=== PATIENT | female | born 1950 | race Caucasian/White ===

== ENCOUNTER 2018-04-29 08:28 | Outpatient (CLI) | payer OTHER, SELFPAY ==
[2018-04-29 10:50] LABS: ALT 33 U/L (12-78); AST 22 U/L (15-37); Albumin 3.5 g/dL (3.4-5.0); Alkaline Phosphatase 75 U/L (46-116); BUN 15 mg/dL (7-18); Bilirubin, Total 0.4 mg/dL (0.2-1.0); CREATININE 0.63 mg/dL (0.55-1.02); Calcium 9.2 mg/dL (8.5-10.1); Chloride 105 mmol/L (98-107); Cholesterol 237 mg/dL (50-200); Glucose 91 mg/dL (70-100); HDL Cholesterol 50 mg/dL (40-60); LDL CHOLESTEROL 155 mg/dL (<100); Potassium 4.3 mmol/L (3.5-5.1); Sodium 140 mmol/L (136-145); Total Protein 7.1 g/dL (6.4-8.2); Triglyceride 152 mg/dL (30-150)
== END 2018-04-29 08:48 ==
PROVIDERS: PCP Family Medicine; Visit Provider Family Medicine
DX: I10 Essential (primary) hypertension (principal)
CPT/HCPCS: 36415; 80053; 80061; 83721

== ENCOUNTER 2018-06-23 13:00 | Outpatient (REF) | payer OTHER, SELFPAY ==
[2018-06-23 13:36] LABS: Bilirubin Negative (Negative); Blood Large (Negative); Clarity Sl Cloudy; Glucose Negative (Negative); Ketones Negative (Negative); Leukocyte Esterase Moderate (Negative); Nitrite Negative (Negative); Urobilinogen 0.2 EU/dL (Up TO 0.2)
[2018-06-23 14:39] LABS: C & S Indicated? Yes; WBC >50 HPF (0-5)
== END 2018-06-23 13:20 ==
LOC: LBN 13:00
PROVIDERS: PCP Family Medicine; Visit Provider Family Medicine
DX: R35.0 Frequency of micturition (principal)
CPT/HCPCS: 87077; 81003; 81015; 87086; 87186

== ENCOUNTER 2018-12-08 12:03 | Outpatient (REF) | payer OTHER, SELFPAY ==
[2018-12-08 14:17] LABS: Bilirubin Negative (Negative); Blood Trace-intact (Negative); Clarity Clear; Glucose Negative (Negative); Ketones Negative (Negative); Leukocyte Esterase Negative (Negative); Nitrite Negative (Negative); Specific Gravity 1.015 (1.005-1.025); Urobilinogen 0.2 EU/dL (Up TO 0.2)
[2018-12-08 14:42] LABS: Bacteria Negative HPF (Negative); Casts Negative LPF (Negative); Crystals Negative HPF (Negative); Epithelial Cells Moderate HPF (Negative); Mucus Negative (Negative); Other Cells Rare Transitional (Negative)
[2018-12-08 14:43] LABS: C & S Indicated? No
== END 2018-12-08 12:23 ==
LOC: LBN 12:03
PROVIDERS: PCP Family Medicine; Visit Provider Family Medicine
DX: R35.0 Frequency of micturition (principal)
CPT/HCPCS: 81003; 81015

== ENCOUNTER 2018-12-31 00:36 | Outpatient (CLI) | payer OTHER, SELFPAY ==
--- NOTE | 2018-12-31 08:30 | DI.MAMMO_ITS ---
SYMPTOM/DIAGNOSIS: SCREENING, Z12.31 MAMMOGRAMS: Mammograms were interpreted according to the usual protocol including computer analysis with CAD system, tomosynthesis and C view imaging. The breasts are of moderate density with fairly symmetrical distribution of fibroglandular tissue. No dominant mass or clumped microcalcification is identified in either breast. Current examination is compared with previous examinations including 11/2017 and there has been no gross interval change in appearance in comparison with the previous studies. CONCLUSION: No specific evidence of malignancy at this time. Routine screening examinations are suggested at yearly intervals in this age group according to the ACS/ACR guidelines. Category 1. Breast density, category B. MQSA ASSESSMENT OF FINDINGS: Negative. Category 1. Patient will receive a letter notifying them of these results. BI-RADS category B. There are scattered areas of fibroglandular density.
== END 2018-12-31 00:56 ==
PROVIDERS: PCP Family Medicine; Visit Provider Family Medicine
DX: Z12.31 Encounter for screening mammogram for malignant neoplasm of breast (principal)
CPT/HCPCS: 77063; 77067

== ENCOUNTER 2021-02-15 01:35 | Outpatient (CLI) | payer OTHER, SELFPAY ==
--- NOTE | 2021-02-15 14:04 | DI.US_ITS ---
APPROVED REPORT EXAM: Comprehensive 2D, Doppler, and color-flow Echocardiogram Patient Location: Out-Patient [employer] Officer: Meghna Guy RDCS (AE) Indications: Edema Other Information Study Quality: Adequate Conclusion Normal left ventricular wall thickness and chamber size. Estimated ejection fraction is 55 to 60%. There are no segmental wall motion abnormalities Normal right ventricular size and systolic function Both atria are normal in size Sclerotic trileaflet aortic valve with trace regurgitation Mild mitral annular calcification. Trace mitral regurgitation Normal tricuspid valve. Trace tricuspid regurgitation. Normal estimated right ventricular systolic pressure Normal pulmonic valve with trace regurgitation Wall motion Left Ventricle The left ventricle is normal size. The left ventricular systolic function is normal. The left ventric ular ejection fraction is within the normal range. There is normal left ventricular wall thickness. T here is normal LV segmental wall motion. There is no ventricular septal defect visualized. LVEF is 57 %. Right Ventricle The right ventricle is normal size. The right ventricular systolic function is normal. The RVSP is 30 .9mmHg. Atria The left atrium size is normal. The right atrium size is normal. The interatrial septum is intact wit h no evidence for an atrial septal defect. Aortic Valve Aortic valve is calcified. Aortic valve is trileaflet. No hemodynamically significant valvular aortic stenosis. Trace aortic regurgitation. Mitral Valve Mild mitral annular calcification. No evidence of mitral valve stenosis. Trace mitral regurgitation. Tricuspid Valve The tricuspid valve is normal in structure. There is no tricuspid valve stenosis. Trace tricuspid reg urgitation. Pulmonic Valve The pulmonary valve is normal in structure. There is no pulmonic valvular stenosis. Trace pulmonic re gurgitation. Great Vessels The aortic root is normal in size. The ascending aorta is normal in size. Aortic arch is not well vis ualized. IVC is normal in size and collapses >50% with inspiration. Pericardium There is no pericardial effusion. 2D Dimensions IVSD d PLAX 0.75 cm F: 0.6-1.0 LV Vol A2C d MOD 82.8 mL LVPW d PLAX 0.76 cm F: 0.6 - 1.0 LV Vol A4C d MOD 108.5 mL LVID d PLAX 4.28 cm F: 3.8 - 5.2 LA vol/ BSA A2C s A-L 20.8 mL/m2 LVDs 3.00 cm F: 2.2 - 3.5 LA vol/ BSA A4C s A-L 24.5 mL/m2 Ao Root d 2.68 cm F: 2.7 - 3.3 LA Vol/ BSA Biplane s A-L 23.6 mL/m2 RA Area A4C 11.03 cm2 LA Area A4C s MOD 15.22 cm2 RA Vol/ BSA A4C s A-L 14.5 mL/m2 LA Area A2C s MOD 14.69 cm2 Ao Asc Diam d 3.15 cm F: 2.3 - 3.1 LV EF A4C MOD 58.9 % LV EF Teichholz 56.7 % LV EF A2C MOD 55.4 % LVEF (Hwang's) 56.22 % F: 54 - 74 LV EF Biplane MOD 56.2 % LV Volume 73.87 mL F: 46 - 106 SV 53.62 mL LV Volume Index 40.58 mL/m2 F: 29 - 61 SV Index 29.44 mL/m2 LV Vol Biplane MOD 95.4 mL FS 29.40 % M-Mode TAPSE 3.00 cm (M/F) >1.7 LV Diastology MV E' medial 0.082 (>0.07 m/s) E/A Ratio 0.8 LV E/e MED 7.55 (<14) MV E Vmax 0.62 (0.4-1.3 m/s) MV E' lateral 0.147 (>0.1 m/s) MV A Vmax 0.80 (0.4-1.3 m/s) LV E/e LAT 4.20 (<14) MV E/A Ratio 0.74 MV E/E' medial 7.56 MV E/E' lateral 4.23 Aortic Valve LVOT Area 3.61 cm2 AoV Area Vmax 1.71 cm2 LVOT Vmax 1.05 m/s AoV Area/ BSA (Vmax) 0.94 cm2/m2 LVOT Mean Rob. 0.69 m/s GAYLA Mean Rob. 1.58 cm2 LVOT Peak Grad 4.4 mmHg GAYLA Mean Rob. Index 0.87 cm2/m2 LVOT Mean Grad 2.3 mmHg LVOT VTI 0.207 m LVOT Diam s 2.10 cm AoV Vmax 2.21 m/s Velocity Ratio 0.47 AoV Mean Rob. 1.58 m/s AoV Peak Grad 19.6 mmHg LVOT SV 74.72 mL AoV Mean Grad 11.0 mmHg AoV VTI 0.413 m AoV Area VTI 1.81 cm2 AoV Area/ BSA (VTI) 0.99 cm/m2 Mitral Valve MV DT 288 (160-240 msec) MV PHT 83 msec MV Area PHT 2.64 cm2 MV VTI 0.194 m MV Area VTI 3.86 (4.0-6.0 cm2) Pulmonary Valve PV Vmax 1.21 (0.5-1.5 m/s) RVOT Peak Gr. 2.51 mmHg PV Peak Grad 5.9 mmHg RVOT Mean Gr. 1.10 mmHg PV Mean Grad 2.6 mmHg RVOT VTI 0.146 m PV VTI 0.195 m RVOT Vmax 0.79 m/s Tricuspid Valve TR Peak Grad 27.8 mmHg TR Vmax 2.64 m/s RA Pressure 3.00 mmHg RVSP (TR) 30.9 mmHg
== END 2021-02-15 01:55 ==
PROVIDERS: PCP Family Medicine; Visit Provider Family Medicine
DX: R60.0 Localized edema (principal); I08.0 Rheumatic disorders of both mitral and aortic valves
CPT/HCPCS: 93306

== ENCOUNTER 2021-02-16 03:50 | Outpatient (CLI) | payer OTHER, SELFPAY ==
[2021-02-16 09:47] LABS: Hemoglobin A1C 6.4 % (<5.7)
[2021-02-16 15:23] LABS: ALT 38 U/L (14-59); AST 25 U/L (15-37); Albumin 3.5 g/dL (3.4-5.0); Alkaline Phosphatase 66 U/L (46-116); Anion Gap 11.4 mmol/L (3-11); BUN 12 mg/dL (7-18); Bilirubin, Total 0.5 mg/dL (0.2-1.0); CO2 26.6 mmol/L (21.0-32.0); CREATININE 0.8 mg/dL (0.55-1.02); Calcium 9.3 mg/dL (8.5-10.1); Calculated LDL 154 mg/dL (<100); Chloride 104 mmol/L (98-107); Cholesterol 231 mg/dL (<200); Glucose 101 mg/dL (74-106); HDL Cholesterol 51 mg/dL (40-60); Potassium 4.4 mmol/L (3.5-5.1); Sodium 142 mmol/L (136-145); TSH (W/Ref FT4) 1.93 uIU/mL (0.36-3.74); Total Protein 7.5 g/dL (6.4-8.2); Triglyceride 131 mg/dL (<150)
== END 2021-02-16 03:51 | disposition home or self-care (01) ==
LOC: LBO 03:50
PROVIDERS: PCP Family Medicine; Visit Provider Family Medicine
DX: I10 Essential (primary) hypertension (principal); E11.9 Type 2 diabetes mellitus without complications; R60.9 Edema, unspecified
CPT/HCPCS: 36415; 80053; 80061; 83036; 84443

== ENCOUNTER 2021-08-29 02:40 | Outpatient (CLI) | payer OTHER, SELFPAY ==
--- NOTE | 2021-08-29 11:12 | DI.MAMMO_ITS ---
Exam(s) MAMMO SCREENING EXAM: MAMMO SCREENING CLINICAL HISTORY: screening,Z12.39. TECHNIQUE: Bilateral full field digital CC and MLO mammographic images were obtained with 3D tomosyn thesis and utilizing computer aided detection (CAD). COMPARISON: Prior mammograms were reviewed, the most recent being December 2018.. FINDINGS: There are no CAD designations. Small benign-appearing nodular density anteriorly-slightly lateral center in the right breast seen on 3D cc imaging is unchanged from prior mammograms. There are no new spiculated masses nor malignant appearing microcalcification groups. There is no significant architectural distortion nor skin thickening-retraction. IMPRESSION: No radiographic evidence of malignancy. Stable benign findings BI-RADS Category 2 - Benign Findings Breast Density - Category B - Scattered areas of fibroglandular density Breast density Category C or D implies that the patient has dense breast tissue. Dense breast tissue can make it harder to find cancer on a mammogram. Dense breast tissue is also associated with an incr eased risk of breast cancer. This information about the result of the mammogram report was provided to the patient to raise their awareness. Use this report when you speak with the patient about their risks for breast cancer, which includes their family history. At that time, you may recommend additional screening tests (Ultrasoun d or MRI) as these tests may add significant information. A negative radiographic report should not delay biopsy if a dominant or clinically suspicious mass is present. Up to ten percent of cancers are not identified on mammography. A negative report may reinforce clinical impression. Adenosis and dense breasts may obscure an underlying neoplasm. False positive reports average 6 to 10%. Patient will receive a letter notifying them of these results.
== END 2021-08-29 03:00 ==
PROVIDERS: PCP Family Medicine; Visit Provider Family Medicine
DX: Z12.31 Encounter for screening mammogram for malignant neoplasm of breast (principal)
CPT/HCPCS: 77063; 77067

== ENCOUNTER 2022-09-24 11:20 | Outpatient (CLI) | payer OTHER, SELFPAY ==
[2022-09-24 12:35] LABS: Hemoglobin A1C 6.2 % (<5.7)
[2022-09-24 12:54] LABS: ALT 35 U/L (14-59); AST 27 U/L (15-37); Albumin 3.4 g/dL (3.4-5.0); Alkaline Phosphatase 64 U/L (46-116); Anion Gap 10.1 mmol/L (3-11); BUN 15 mg/dL (7-18); Bilirubin, Total 0.4 mg/dL (0.2-1.0); CO2 26.9 mmol/L (21.0-32.0); CREATININE 0.7 mg/dL (0.55-1.02); Calcium 9.1 mg/dL (8.5-10.1); Calculated LDL 136 mg/dL (<100); Chloride 105 mmol/L (98-107); Cholesterol 217 mg/dL (<200); Estimated GFR 91.26 (mL/min/1.73m2); Glucose 91 mg/dL (74-106); HDL Cholesterol 61 mg/dL (40-60); Potassium 3.9 mmol/L (3.5-5.1); Sodium 142 mmol/L (136-145); TSH (W/Ref FT4) 1.96 uIU/mL (0.36-3.74); Total Protein 7.9 g/dL (6.4-8.2); Triglyceride 104 mg/dL (<150)
== END 2022-09-24 11:21 | disposition home or self-care (01) ==
LOC: LOS 11:20
PROVIDERS: PCP Family Medicine; Visit Provider Family Medicine
DX: I10 Essential (primary) hypertension (principal); E11.9 Type 2 diabetes mellitus without complications; E66.8 Other obesity; Z68.43 Body mass index [BMI] 50.0-59.9, adult
CPT/HCPCS: 36415; 80053; 80061; 83036; 84443

== ENCOUNTER 2022-10-09 01:47 | Outpatient (CLI) | payer OTHER, SELFPAY ==
--- NOTE | 2022-10-09 06:45 | DI.RAD_ITS ---
Exam(s) XR ANKLE LT COMPLETE EXAM: XR ANKLE LT COMPLETE CLINICAL HISTORY: l ankle pain,m25.572 TECHNIQUE: 2D digital imaging was performed of the left ankle. Four images were obtained. AP, late ral and oblique views were obtained. COMPARISON: CR LEFT TIB/FIB from 12/22/2012 CR LEFT ANKLE COMPLETE from 12/22/2012 FINDINGS: BONES: No acute fracture is present. No bony destructive lesion is seen. There is a moderate size fermin ntar calcaneal spur. JOINTS:There is marked narrowing of the medial tibial talar joint. Degenerative changes are seen in the foot with hypertrophic changes seen talonavicular joint in the TMT joints. SOFT TISSUE: There is marked soft tissue swelling around the ankle. Vascular calcifications are pres ent. IMPRESSION: 1. Marked soft tissue swelling around the ankle. No acute fractures identified. 2. Degenerative changes seen in the foot and ankle. There is marked narrowing of the medial tibial t alar joint. 3. Atherosclerosis. DATA REPOSITORY: RADIATION DOSE DELIVERED:
== END 2022-10-09 02:07 ==
LOC: DI 01:47
PROVIDERS: PCP Family Medicine; Visit Provider Family Medicine
DX: M25.572 Pain in left ankle and joints of left foot
CPT/HCPCS: 73610

== ENCOUNTER 2022-11-06 18:16 | Outpatient (REF) | payer OTHER, SELFPAY ==
[2022-11-06 13:45] LABS: Bilirubin Negative (Negative); Blood Large (Negative); Clarity Cloudy (Clear); Glucose Negative (Negative); Ketones Negative (Negative); Leukocyte Esterase Moderate (Negative); Nitrite Negative (Negative)
[2022-11-06 13:58] LABS: Bacteria Moderate HPF (Negative); WBC >50 HPF (0-5)
[2022-11-06 13:59] LABS: C & S Indicated? Yes
== END 2022-11-06 18:17 | disposition home or self-care (01) ==
LOC: LBN 18:16
PROVIDERS: PCP Family Medicine; Visit Provider Family Medicine
DX: R35.0 Frequency of micturition (principal)
CPT/HCPCS: 87077; 81003; 81015; 87086; 87186

== ENCOUNTER 2022-11-23 20:47 | Outpatient (REF) | payer OTHER, SELFPAY ==
[2022-11-23 21:00] LABS: Bilirubin Small (Negative); Blood Large (Negative); Clarity Cloudy (Clear); Glucose 100 mg/dL (Negative); Ketones Trace mg/dL (Negative); Leukocyte Esterase Moderate (Negative); Nitrite Negative (Negative); Specific Gravity 1.025 (1.005-1.025); pH 5.5 (5-8)
[2022-11-23 21:07] LABS: Bacteria Moderate HPF (Negative); C & S Indicated? Yes; Casts Negative LPF (Negative); Crystals Negative HPF (Negative); Epithelial Cells Few HPF (Negative); Mucus Moderate (Negative); WBC 20-50 HPF (0-5)
== END 2022-11-23 20:48 | disposition home or self-care (01) ==
LOC: LBN 20:47
PROVIDERS: PCP Family Medicine; Visit Provider Nurse Practitioner Family
DX: R35.0 Frequency of micturition (principal)
CPT/HCPCS: 81003; 81015; 87086

== ENCOUNTER 2023-01-02 17:57 | Outpatient (REF) | payer OTHER, SELFPAY ==
[2023-01-02 22:13] LABS: Bilirubin Small (Negative); Blood Moderate (Negative); Clarity Sl Cloudy (Clear); Glucose Negative (Negative); Ketones Negative (Negative); Leukocyte Esterase Moderate (Negative); Nitrite Positive (Negative); Specific Gravity >= 1.030 (1.005-1.025); Urobilinogen 0.2 mg/dL (Up to 0.2); pH 5.5 (5-8)
[2023-01-02 22:53] LABS: Bacteria Few HPF (Negative); C & S Indicated? No/Sq. Contamination; Casts Negative LPF (Negative); Crystals Rare Calcium Oxalate HPF (Negative); Epithelial Cells Moderate HPF (Negative); Mucus Negative (Negative); WBC >50 HPF (0-5)
== END 2023-01-02 17:58 | disposition home or self-care (01) ==
LOC: LBN 17:57
PROVIDERS: PCP Family Medicine; Visit Provider Nurse Practitioner Family
DX: R30.0 Dysuria (principal); R35.0 Frequency of micturition; N39.0 Urinary tract infection, site not specified
CPT/HCPCS: 81003; 81015

== ENCOUNTER 2023-01-29 15:51 | Outpatient (CLI) | payer OTHER, SELFPAY ==
--- NOTE | 2023-01-29 14:30 | DI.RAD_ITS ---
Exam(s) XR CHEST 2V PA LATERAL EXAM: XR CHEST 2V PA LATERAL CLINICAL HISTORY: cough, R05.9 TECHNIQUE: 2D digital imaging was performed of the chest. Two images were obtained. PA and lateral views were obtained. COMPARISON: CR CHEST 2 VIEWS PA,LAT from 05/15/2010 FINDINGS: MEDIASTINUM: Normal. HEART: Normal. PULMONARY VASCULATURE: Normal. LUNGS: Clear. PLEURAL SPACE: No pleural effusion or pneumothorax. BONE:Within normal limits for the patient's age. OTHER FINDINGS:Normal. IMPRESSION: No acute pulmonary findings. DATA REPOSITORY: RADIATION DOSE DELIVERED:
== END 2023-01-29 16:11 ==
LOC: DI 15:53
PROVIDERS: PCP Family Medicine; Visit Provider Family Medicine
DX: R05.9 Cough, unspecified (principal)
CPT/HCPCS: 71046

== ENCOUNTER 2023-01-29 16:11 | Outpatient (CLI) | payer OTHER, SELFPAY ==
[2023-01-29 15:10] LABS: Abs Immature Grans 0.06 10^3/uL (0.0-0.06); Absolute Basophil Count 0.08 10^3/uL (0.0-0.2); Absolute Eosinophil Count 0.68 10^3/uL (0.0-0.7); Absolute Lymphocyte Count 2.22 10^3/uL (1.2-3.4); Absolute Monocyte Count 1.16 10^3/uL (0.1-0.8); Absolute Neutrophil Count 4.91 10^3/uL (1.2-6.7); Basophils % 0.9; Eosinophils % 7.5; HGB 13.2 g/dL (11.2-15.7); Immature Grans % 0.7; Lymphocytes % 24.4; MCH 32.3 pg (27.0-33.0); MCV 98 fL (80-95); MPV 9.8 fL (8.0-11.0); Monocytes % 12.7; Neutrophils % 53.8; Platelet Count 303 10^3/uL (130-400); RBC 4.09 10^6/uL (3.93-5.22); RDW-SD 43.7 fL; WBC 9.11 10^3/uL (4.4-10.8)
[2023-01-29 15:40] LABS: ALT 29 U/L (14-59); AST 17 U/L (15-37); Albumin 3.3 g/dL (3.4-5.0); Alkaline Phosphatase 74 U/L (46-116); Anion Gap 8.7 mmol/L (3-11); BUN 17 mg/dL (7-18); Bilirubin, Total 0.2 mg/dL (0.2-1.0); CO2 24.3 mmol/L (21.0-32.0); CREATININE 0.8 mg/dL (0.55-1.02); Calcium 9.3 mg/dL (8.5-10.1); Chloride 105 mmol/L (98-107); Estimated GFR 77.27 (mL/min/1.73m2); Glucose 143 mg/dL (74-106); Potassium 4.1 mmol/L (3.5-5.1); Sodium 138 mmol/L (136-145); TSH (W/Ref FT4) 1.91 uIU/mL (0.36-3.74); Total Protein 7.8 g/dL (6.4-8.2)
== END 2023-01-29 16:12 | disposition home or self-care (01) ==
LOC: LBO 16:11
PROVIDERS: PCP Family Medicine; Visit Provider Family Medicine
DX: R05.9 Cough, unspecified (principal); R73.9 Hyperglycemia, unspecified
CPT/HCPCS: 36415; 80053; 84443; 85025

== ENCOUNTER 2023-02-28 04:31 | Outpatient (CLI) | payer OTHER, SELFPAY ==
[2023-02-28] MEDS: Albuterol HFA 18 GM 200 PUFF INH IH (15:44)
[2023-02-28] MEDS: Inhaler, Assist Device 1 EACH MC (15:44)
--- NOTE | 2023-03-05 07:16 | W.PFT ---
Date of service: 02/28/23 Time of Service: 14:48 Pulmonary Function Test Result Indications: Cough Interpretation Spirometry: There is no airflow limitation. No bronchodilator response. Impression Normal spirometry Clinical Correlation therefore is recommended.
== END 2023-02-28 04:32 | disposition home or self-care (01) ==
PROVIDERS: PCP Family Medicine; Visit Provider Nurse Practitioner Family
DX: R05.9 Cough, unspecified (principal)
CPT/HCPCS: 94060

== ENCOUNTER 2023-04-09 09:47 | Outpatient (CLI) | payer OTHER, SELFPAY ==
--- NOTE | 2023-04-09 09:15 | DI.RAD_ITS ---
Exam(s) XR SHOULDER RT COMPLETE 2+V EXAM: XR SHOULDER RT COMPLETE 2+V CLINICAL HISTORY: RIGHT BICEP PAIN. TECHNIQUE: 2D digital imaging was performed of the right shoulder. Two images were obtained. Grash ey and Y views were obtained. COMPARISON: No exams were available for comparison FINDINGS: BONES: No acute fracture is present. No bony destructive lesion is seen. JOINTS: No dislocation present. There are mild degenerative changes seen at both the glenohumeral and the acromioclavicular joints. SOFT TISSUE: The visualized lungs are clear. IMPRESSION: Degenerative changes of the shoulder. DATA REPOSITORY: RADIATION DOSE DELIVERED:
== END 2023-04-09 09:48 | disposition home or self-care (01) ==
LOC: DIORS 09:47
PROVIDERS: PCP Family Medicine; Visit Provider Student in an Organized Health Care Education/Training Program
DX: S46.211A Strain of muscle, fascia and tendon of other parts of biceps, right arm, initial encounter; X50.0XXA Overexertion from strenuous movement or load, initial encounter
CPT/HCPCS: 73030

== ENCOUNTER 2023-06-05 15:29 | Outpatient (REF) | payer OTHER, SELFPAY ==
[2023-06-05 21:52] LABS: Bilirubin Negative (Negative); Blood Large (Negative); Clarity Turbid (Clear); Glucose Negative (Negative); Ketones Negative (Negative); Leukocyte Esterase Small (Negative); Nitrite Negative (Negative); Specific Gravity >= 1.030 (1.005-1.025); Urobilinogen 0.2 mg/dL (Up to 0.2)
[2023-06-05 22:12] LABS: Bacteria Negative HPF (Negative); Crystals Rare Calcium Oxalate HPF (Negative); Epithelial Cells Many HPF (Negative); Mucus Negative (Negative); RBC >50 HPF (0-2); WBC 20-50 HPF (0-5)
[2023-06-05 22:13] LABS: C & S Indicated? No/Sq. Contamination
== END 2023-06-05 15:30 | disposition home or self-care (01) ==
LOC: LBN 15:29
PROVIDERS: PCP Family Medicine; Visit Provider Nurse Practitioner Family
DX: R39.89 Other symptoms and signs involving the genitourinary system (principal); R82.998 Other abnormal findings in urine
CPT/HCPCS: 81003; 81015

== ENCOUNTER 2023-08-08 11:52 | Outpatient (REF) | payer OTHER, SELFPAY | END 2023-08-08 11:53 | disposition home or self-care (01) | LOC: LBN 11:52 | PROVIDERS: PCP Family Medicine; Referring Provider Nurse Practitioner Family; Visit Provider Nurse Practitioner Family | DX: J02.9 Acute pharyngitis, unspecified (principal) | CPT/HCPCS: 87070 ==

== ENCOUNTER → 2023-08-29 02:55 | Outpatient (CLI) | payer OTHER, SELFPAY ==
--- NOTE | 2023-08-29 05:43 | DI.DEXA_ITS ---
Exam(s) XR DEXA BONE DENSITY W/WO ROGERS EXAM: XR DEXA BONE DENSITY W/WO ROGERS CLINICAL HISTORY: SCREEENING FOR OSTEOPOROSIS IN POSTMENOPAUSAL WOMAN,Z78.0 TECHNIQUE: Routine DEXA evaluation of the lumbar spine, hip, or forearm. COMPARISON: No exams were available for comparison FINDINGS: Performed on a Hologic unit. Lumbar Spine total T-score: 1.2 Hip total T-score:-1.1 Independent reading at the level of the femoral neck yields T-score of -2.5 Forearm total T-score: -1.4 IMPRESSION: Bone mineral density measures in the osteopenia range. Fracture risk is moderate. Note: Any spine fracture indicates 5x risk for subsequent spine fracture and 2x risk for subsequent h ip fracture. World Health Organization criteria for BMD interpretation classify patients: Normal...... T- Score at or above -1.0 Osteopenic... T- Score between -1.0 and -2.5 Osteoporosis... T-Score at or below -2.5
--- NOTE | 2023-08-29 05:43 | DI.MAMMO_ITS ---
Exam(s) MAMMO SCREENING EXAM: MAMMO SCREENING CLINICAL HISTORY: screening,Z12.39. TECHNIQUE: Bilateral full field digital CC and MLO mammographic images were obtained with 3D tomosyn thesis and utilizing computer aided detection (CAD). COMPARISON: Prior mammograms were reviewed. FINDINGS: There has been no significant change in the appearance and distribution of the fibroglandular tissue. There are no CAD designations. There are no new spiculated masses nor malignant appearing microcalcification groups. There is no significant architectural distortion nor skin thickening-retraction. IMPRESSION: No radiographic evidence of malignancy. BI-RADS Category 1 - Negative Breast Density - Category B - Scattered areas of fibroglandular density Breast density Category C or D implies that the patient has dense breast tissue. Dense breast tissue can make it harder to find cancer on a mammogram. Dense breast tissue is also associated with an incr eased risk of breast cancer. This information about the result of the mammogram report was provided to the patient to raise their awareness. Use this report when you speak with the patient about their risks for breast cancer, which includes their family history. At that time, you may recommend additional screening tests (Ultrasoun d or MRI) as these tests may add significant information. A negative radiographic report should not delay biopsy if a dominant or clinically suspicious mass is present. Up to ten percent of cancers are not identified on mammography. A negative report may reinforce clinical impression. Adenosis and dense breasts may obscure an underlying neoplasm. False positive reports average 6 to 10%. Patient will receive a letter notifying them of these results.
== END ==
PROVIDERS: PCP Family Medicine; Visit Provider Family Medicine
DX: Z12.31 Encounter for screening mammogram for malignant neoplasm of breast (principal); Z13.820 Encounter for screening for osteoporosis; Z78.0 Asymptomatic menopausal state; M85.89 Other specified disorders of bone density and structure, multiple sites
CPT/HCPCS: 77063; 77067; 77080

== ENCOUNTER 2024-07-28 11:02 | Outpatient (CLI) | payer OTHER, SELFPAY ==
[2024-07-28 12:46] LABS: ALT 26 U/L (14-59); AST 21 U/L (15-37); Albumin 3.4 g/dL (3.4-5.0); Alkaline Phosphatase 65 U/L (46-116); Anion Gap 8.6 mmol/L (3-11); BUN 14 mg/dL (7-18); Bilirubin, Total 0.45 mg/dL (0.2-1.0); CO2 26.4 mmol/L (21.0-32.0); CREATININE 0.7 mg/dL (0.55-1.02); Calcium 9.4 mg/dL (8.5-10.1); Calculated LDL 137 mg/dL (<100); Chloride 104 mmol/L (98-107); Cholesterol 220 mg/dL (<200); Estimated GFR 90.14 (mL/min/1.73m2); Glucose 96 mg/dL (74-106); HDL Cholesterol 61 mg/dL (40-60); Sodium 139 mmol/L (136-145); TSH (W/Ref FT4) 1.09 uIU/mL (0.36-3.74); Total Protein 8.2 g/dL (6.4-8.2); Triglyceride 112 mg/dL (<150)
[2024-07-28 13:26] LABS: Hemoglobin A1C 6.1 % (<5.7)
== END 2024-07-28 11:03 | disposition home or self-care (01) ==
PROVIDERS: PCP Family Medicine; Visit Provider Family Medicine
DX: E11.9 Type 2 diabetes mellitus without complications (principal); I10 Essential (primary) hypertension; E03.9 Hypothyroidism, unspecified; Z23 Encounter for immunization; M19.072 Primary osteoarthritis, left ankle and foot; Z01.30 Encounter for examination of blood pressure without abnormal findings; E66.01 Morbid (severe) obesity due to excess calories
CPT/HCPCS: 36415; 80053; 80061; 83036; 84443

== ENCOUNTER 2024-08-04 02:38 | Outpatient (CLI) | payer OTHER, SELFPAY ==
--- NOTE | 2024-08-04 07:00 | DI.RAD_ITS ---
Exam(s) XR ANKLE LT COMPLETE EXAM: XR ANKLE LT COMPLETE CLINICAL HISTORY: l ankle pain,PRIMARY OA LT ANLKE AND FOOT,M19.072 TECHNIQUE: 2D digital imaging was performed. Three views. COMPARISON: CR LEFT ANKLE COMPLETE from 12/22/2012 CR LEFT KNEE 3 VIEW COMPLETE from 07/02/2016 CR XR ANKLE LT COMPLETE from 10/09/2022 FINDINGS: Exam is somewhat limited by under penetration BONES: No acute fracture is present. There is lucency at the medial talar dome, likely degenerative subchondral cyst. No flattening. Spurring at the medial malleolus. Heel spurs. JOINTS:The ankle mortise is normally aligned. Severe narrowing of the medial tibiotalar joint again n oted, similar to prior. Severe narrowing of the talonavicular joint with prominent spurring. Findin gs have worsened from when compared with the prior exam. Also narrowing and spurring at the calcanea l cuboid joint and tarsal metatarsal joints. The joints are suboptimally profiled. SOFT TISSUE: Chronic soft tissue calcifications and significant edema. 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 DATA REPOSITORY: RADIATION DOSE DELIVERED:
== END 2024-08-04 02:58 ==
LOC: DI 02:38
PROVIDERS: PCP Family Medicine; Visit Provider Family Medicine
DX: M19.072 Primary osteoarthritis, left ankle and foot (principal)
CPT/HCPCS: 73610

== ENCOUNTER 2025-04-04 09:50 | Emergency (ER) | payer OTHER, SELFPAY ==
[2025-04-04 09:51] VITALS: BP 131/69; PULSE 71; RESP 18; TEMP 37; O2SAT 94
[2025-04-04 09:58] VITALS: BP 131/69; PULSE 71; RESP 18; TEMP 37; O2SAT 94
--- NOTE | 2025-04-04 10:05 | ED.GENADUL_ITS ---
Discharge Plan Disposition Patient Disposition: Home Discharge Details Clinical Impression: Diverticulitis, Hematuria Primary Care Provider: Susu Penn ED Provider: Lolis Mattson Home Meds and New Rx's Prescriptions: New sulfamethoxazole-trimethoprim [Bactrim DS] 800-160 mg tablet 1 tab PO Q12H Qty: 8 0RF metronidazole 500 mg tablet 500 mg PO Q8H 4 Days Qty: 12 0RF No Action (DME) BreatheRite MDI Spacer Spacer See Rx Instructions .ROUTE .MEDSUPPLY Qty: 1 0RF Rx Instructions: As directed albuterol sulfate 90 mcg/actuation HFA aerosol inhaler 2 puff inhalation Q8H Qty: 8.5 4RF (DME) Custom Debora Brace See Rx Instructions .ROUTE .MEDSUPPLY Qty: 1 0RF Rx Instructions: Please apply to LEFT ankle for pes planus and severe ankle and midfoot arthritis. Unable to tolerate fra-dzy-wmutp braces due to habitus. cholecalciferol (vitamin D3) [Vitamin D3] 2,000 UNIT tablet 2,000 mg PO DAILY Qty: 90 cyclosporine [Restasis] 0.05 % dropperette 1 drp OP Q12H Qty: 180 4RF escitalopram oxalate 10 mg tablet 10 mg PO HS Qty: 90 4RF lorazepam [Ativan] 0.5 mg tablet 0.5 mg PO BID PRN (Reason: anxiety) Qty: 20 0RF Rx Instructions: 1/2 tablet (0.25) in the AM and use 1/2 tablet if awake at night for anxiety nystatin 100,000 unit/gram powder 1 applic topical BID Qty: 60 4RF cyanocobalamin (vitamin B-12) [Vitamin B-12] 1,000 MCG tablet extended release 1,000 mcg PO DAILY Discharge Instructions Instructions: Diverticulitis Additional Instructions: Please call your primary care provider first thing in the morning to schedule follow-up appointment. There was a small amount of blood in your urine, but there is no sign of infection at this time. I recommend they have your urine rechecked to make sure that this resolves. Your CAT scan was significant for evidence of diverticulitis. I recommend that you follow a clear liquid diet for the next 24 to 48 hours, then progressed to a low fiber diet to promote bowel rest. Stay well-hydrated, drinking plenty of fluid throughout the day. You are being prescribed 2 different antibiotics that will work together to help treat this. Take the full course for 5 days as prescribed. Return to emergency care if you develop new fevers, uncontrollable vomiting, severe abdominal pain, inability to urinate, blood in your stool, or if you are very worried and need to be rechecked again immediately Referrals: Susu Penn MD, [place] [Primary Care Provider, Medicine] Discharge Data Discharge Date/Time-TO BE ENTERED AT DEPARTURE: 04/04/25 12:54 HPI General Date/Time Provider Initiated Documentation: 04/04/25 10:04 . HPI Narrative: Cally is a 74-year-old female w 74-year-old female with recurrent UTIs presenting with urinary symptoms. Accompanied by . Symptoms began 03/29/2025, progressively worsening. Increased nocturia, dysuria, foul odor and color of urine, no hematuria. Significant lower abdominal pressure and new lower back pain. No fever, chills, or change in energy levels. Normal appetite, hydration, and bowel movements. History of recurrent UTIs, last treated with antibiotics 2 years ago. Severe UTI 4-[address] Penn. No history of heart, lung, diabetes, kidney issues, or stones. PMH significant for HTN, obesity, depression, osteoarthritis Related Data Home Medications ?Medication ?Instructions ?Recorded ?Confirmed cyanocobalamin (vitamin B-12) 1,000 mcg PO DAILY 11/0304/04/25 1,000 mcg tablet,extended release (Vitamin B-12 ER) cholecalciferol (vitamin D3) 50 2,000 mg PO DAILY #90 tabs 08/24/13 04/04/25 mcg (2,000 unit) tablet (Vitamin D3) cyclosporine 0.05 % eye drops in a 1 drp ophthalmic (e ye) Q12H #180 ea 10/18/20 04/04/25 dropperette (Restasis) albuterol sulfate 90 mcg/actuation 2 puff inhalation Q 8H #8.5 grams 02/18/23 04/04/25 aerosol inhaler inhalational spacing device #1 ea 02/18/23 04/04/25 (BreatheRite MDI Spacer) Custom [facility] #1 ea 09/14/24 04/04/25 escitalopram oxalate 10 mg tablet 10 mg PO HS #90 tabs 09/30/24 04/04/25 lorazepam 0.5 mg tablet (Ativan) 0.5 mg PO BID PRN anx iety #20 tabs 09/30/24 04/04/25 nystatin 100,000 unit/gram topical 1 applic topical BI D #60 grams 02/05/25 04/04/25 powder metronidazole 500 mg tablet 500 mg PO Q8H 4 days #12 t abs 04/04/25 sulfamethoxazole 800 1 tab PO Q12H #8 tabs mg-trimethoprim 160 mg tablet (Bactrim DS) Previous Rx's ?Medication ?Instructions ?Recorded cyclosporine 0.05 % eye drops in a 1 drp ophthalmic (e ye) Q12H #180 ea 10/18/20 dropperette (Restasis) albuterol sulfate 90 mcg/actuation 2 puff inhalation Q 8H #8.5 grams 02/18/23 aerosol inhaler inhalational spacing device #1 ea 02/18/23 (BreatheRite MDI Spacer) Custom [facility] #1 ea 09/14/24 escitalopram oxalate 10 mg tablet 10 mg PO HS #90 tabs 09/30/24 lorazepam 0.5 mg tablet (Ativan) 0.5 mg PO BID PRN anx iety #20 tabs 09/30/24 nystatin 100,000 unit/gram topical 1 applic topical BI D #60 grams 02/05/25 powder metronidazole 500 mg tablet 500 mg PO Q8H 4 days #12 t abs 04/04/25 sulfamethoxazole 800 1 tab PO Q12H #8 tabs mg-trimethoprim 160 mg tablet (Bactrim DS) Allergies Allergy/AdvReac Type Severity Reaction Status Date / Time nitrofurantoin Allergy Intermediate Rash Unverified 04/04/25 09:55 nafcillin Allergy Mild Hives Unverified 04/04/25 09:55 cephalexin AdvReac Intermediate Diarrhea Unverified 04/04/25 09:55 General Stated Complaint: Urinary LETI: 3 Exam Narrative Exam Narrative: General Appearance: Well-appearing, afebrile. Vital signs: Within normal limits. HEENT: Mucous members Respiratory: Easy breathing, clear lungs bilaterally. Cardiovascular: Normal heart sounds, no murmurs. Gastrointestinal: Soft, nondistended, nontender abdomen, normal bowel sounds. Genitourinary: No CVA tenderness. Skin: Warm and dry, no rash. Psychiatric: Normal. Course Vital Signs Vital signs: Vital Signs Temperature 37 C 04/04/25 09:51 Pulse 71 04/04/25 09:51 Respiratory Rate 18 04/04/25 09:51 Blood Pressure 131/69 04/04/25 09:51 Pulse Oximetry 94 04/04/25 09:51 Temperature 37 C 04/04/25 09:58 Temperature Source Tympanic 04/04/25 09:58 Pulse 71 04/04/25 09:58 Respiratory Rate 18 04/04/25 09:58 Blood Pressure 131/69 04/04/25 09:58 Pulse Oximetry 94 04/04/25 09:58 Oxygen Delivery Method Room Air 04/04/25 09:58 Oxygen Flow Rate 0 04/04/25 09:58 Pain Level 8 04/04/25 09:58 Medical Decision Making Initial Assessment: 74-year-old female with urinary frequency, dysuria, foul odor, and lower abdominal pressure starting almost a week ago. No hematuria. New mid-back pain during UTIs. History of recurrent UTIs. Differential Diagnosis includes but is not limited to: UTI, pyelonephritis, diverticulitis, colitis, urethritis ED Course: - Urine sample collected - Baseline labs - CT abdomen/pelvis performed I independently interpreted the following tests: CBC, CMP, UA reassuring. CT abdomen/pelvis remarkable for acute diverticulitis; right ureter Quyen's adjacent to the inflamed bowel which likely explains urinary symptoms. Final Assessment: Diverticulitis, no complications Antibiotics initiated. Reviewed discharge instructions with patient, including antibiotics, symptomatic management, liquid diet/bowel rest, and red flags indicating need for emergency care. Recommend close follow-up with PCP Disposition: - Follow-Up: Call PCP for follow-up this week Patient consented to the use of [facility] Medical Records Medical records narrative: I did review previous medical records, including urine cultures and previous PCP visits for UTI. She did have resistance to cephalexin previously, was successfully treated with Bactrim. Imaging Data Radiologic Study: Radiologist's impression: Exam(s) CT ABDOMEN PELVIS WO/W EXAM: CT ABDOMEN PELVIS WO/W CLINICAL HISTORY: dysuria, hematuria, (-)UTI TECHNIQUE: Imaging Protocol: Axial computed tomography images with coronal and sagittal reformatted images were created and reviewed. CONTRAST MATERIAL: Intravenous: Omnipaque 350 Contrast volume:75 mL Oral: No COMPARISON: No exams were available for comparison FINDINGS: ABDOMEN: Lung Bases: No acute abnormality. Liver: Normal density. No measurable mass. Portal, Superior Mesenteric, and Splenic Veins: Unremarkable. Gallbladder and Biliary Tract: There are gallstones present. There is no biliary ductal dilatation. The common duct measures less than 7 mm in diameter. Pancreas: Normal density, no abnormal calcifications or inflammatory process. Spleen: Normal. Adrenals: No masses seen. Kidneys: Normal size, contour and axis. No radiodense stones or obstructive uropathy. No masses seen. Note is made of a retroaortic left renal vein. Abdominal Aorta: Abdominal portion non-dilated. Atherosclerotic calcification is present. Bowel: There is diverticulosis of the colon. There are inflammatory changes seen around the distal sigmoid colon consistent with acute diverticulitis. The right ureter lies adjacent to the inflamed bowel. There is no evidence of appendicitis. There is no evidence of bowel obstruction. Peritoneal Cavity: No ascites, collection or mesenteric inflammatory response. No free air. Lymph Nodes: Within normal limits. Bones: Within normal limits for the patient's age. There is fusion of the L1 and L2 vertebral bodies. There is grade 1 anterolisthesis of L3 on L4 and L4 on L5 which is likely degenerative. There is no spondylolysis present. There are laminectomy defects from L2 through S1. Soft Tissues: Unremarkable. PELVIS: Bladder: The urinary bladder is incompletely distended but grossly unremarkable. Reproductive Organs: Unremarkable as visualized. Lymph Nodes: Within normal limits. Bones: Within normal limits for the patient's age. IMPRESSION: 1. Findings suggestive of acute diverticulitis involving the distal sigmoid colon. No abscess or free air. 2. There is no evidence of nephrolithiasis or obstructive uropathy. 3. Cholelithiasis. There is no CT evidence to suggest acute cholecystitis. Please correlate clinically. PFSH All Active Problems (Updated 04/04/25 @ 12:26 by Lolis Uribe) Hematuria (Acute) Diverticulitis (Chronic) Weight loss counseling, encounter for (Acute) Osteoarthritis of talonavicular joint (Acute) Acquired pes planus of left foot (Acute) Obesity, morbid, BMI 50 or higher (Acute) Primary osteoarthritis, left ankle and foot (Acute) Steroid injection: 03/04/2023 Cough (Acute) BMI 50.0-59.9, adult (Acute) Left shoulder pain (Acute) Impaired glucose regulation (Acute) Edema (Acute) Vitamin D deficiency (Chronic 03/10/12) Varicose ulcer of left lower extremity (Chronic 07/15/17) Vaginal atrophy (Chronic 01/28/14) Tinnitus (Chronic 09/10/16) Sensorineural hearing loss, bilateral (Chronic 09/10/16) S/P knee replacement (Chronic 03/18/17) Pain in thoracic spine (Chronic 03/10/12) Increased body mass index (Chronic) Hypertension (Chronic 03/22/14) Depressive disorder (Chronic 03/10/12) Medical History Herpes zoster (10/28/14) Phlebitis (07/15/17) Acute lower UTI (urinary tract infection) (01/28/14) Arthritis Back / knees Migraine Past history Surgical History History of spinal surgery History of umbilical hernia repair Status post carpal tunnel release Status post total right knee replacement (04/06/15) Replacement of total knee joint Spinal surgery ? area of spine or nature of operation . 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 Open Carpal Tunnel release 11/04/12 RIGHT; DR. JIMENEZ 05/22/16 LEFT; DR. JIMENEZ Repair of umbilical hernia ?2009 Dr Chapito Gan Family History Mother Osteoporosis Father Osteoporosis Colorectal cancer Sister No problems noted. Brother Appendicitis with perforation Maternal Grandfather No problems noted. Paternal Grandfather No problems noted. Maternal Grandmother No problems noted. Paternal Grandmother No problems noted. Son No problems noted. Daughter No problems noted. Brother No problems noted. Brother No problems noted. Brother No problems noted. Social History (Updated 02/26/25 @ 10:10 by Tatiana Wright) Smoking/Tobacco Use Status: Never Second Hand Exposure: No Smoking risk assessment performed?: Yes Alcohol Intake: current Alcohol Intake frequency: a few times a month Drug use: Never Substance use type: does not use Counseling given: No Caregiver/Support person: No Household members: spouse Housing: house Communication Needs: None Do you need help understanding health information?: Never Pets and animals: No Sexually active: Yes Do you think of yourself as: straight/heterosexual Current gender identity: female What is your relationship status?: How often do you talk on the phone with friends or family?: three or more times per week How often do you get together with friends or relatives?: three or more times per week How often do you attend cheondoism or islam services?: 4 or more times per year Do you belong to any clubs or organized social groups?: no Panel score (0-1 are the most socially isolated patients): 3 What type of physical activity do you participate in: none Frequency: does not exercise Amy/Baptism: Presbyterian Seatbelt use: always Helmet use: No Drive intox or ride w/intox driver/sales workers: No
[2025-04-04 10:15] LABS: Glucose Negative (Negative)
[2025-04-04 10:22] LABS: C & S Indicated? No
[2025-04-04 10:49] LABS: HCT 35.9 % (36.0-46.0); HGB 11.6 g/dL (11.2-15.7); MCH 31.8 pg (27.0-33.0); MCHC 32.3 % (32.0-36.0); MCV 98 fL (80-95); MPV 10.3 fL (8.0-11.0); Platelet Count 285 10^3/uL (130-400); RBC 3.65 10^6/uL (3.93-5.22); RDW 12.7 % (11.7-14.6); RDW-SD 46.1 fL; WBC 8.47 10^3/uL (4.4-10.8)
[2025-04-04 11:00] VITALS: BP 106/45; PULSE 61; RESP 16; O2SAT 99
--- NOTE | 2025-04-04 11:00 | DI.CT_ITS ---
Exam(s) CT ABDOMEN PELVIS WO/W EXAM: CT ABDOMEN PELVIS WO/W CLINICAL HISTORY: dysuria, hematuria, (-)UTI TECHNIQUE: Imaging Protocol: Axial computed tomography images with coronal and sagittal reformatted images were created and reviewed. CONTRAST MATERIAL: Intravenous: Omnipaque 350 Contrast volume:75 mL Oral: No COMPARISON: No exams were available for comparison FINDINGS: ABDOMEN: Lung Bases: No acute abnormality. Liver: Normal density. No measurable mass. Portal, Superior Mesenteric, and Splenic Veins: Unremarkable. Gallbladder and Biliary Tract: There are gallstones present. There is no biliary ductal dilatation. The common duct measures less than 7 mm in diameter. Pancreas: Normal density, no abnormal calcifications or inflammatory process. Spleen: Normal. Adrenals: No masses seen. Kidneys: Normal size, contour and axis. No radiodense stones or obstructive uropathy. No masses seen. Note is made of a retroaortic left renal vein. Abdominal Aorta: Abdominal portion non-dilated. Atherosclerotic calcification is present. Bowel: There is diverticulosis of the colon. There are inflammatory changes seen around the distal sigmoid colon consistent with acute diverticulitis. The right ureter lies adjacent to the inflamed bowel. There is no evidence of appendicitis. There is no evidence of bowel obstruction. Peritoneal Cavity: No ascites, collection or mesenteric inflammatory response. No free air. Lymph Nodes: Within normal limits. Bones: Within normal limits for the patient's age. There is fusion of the L1 and L2 vertebral bodies. There is grade 1 anterolisthesis of L3 on L4 and L4 on L5 which is likely degenerative. There is no spondylolysis present. There are laminectomy defects from L2 through S1. Soft Tissues: Unremarkable. PELVIS: Bladder: The urinary bladder is incompletely distended but grossly unremarkable. Reproductive Organs: Unremarkable as visualized. Lymph Nodes: Within normal limits. Bones: Within normal limits for the patient's age. IMPRESSION: 1. Findings suggestive of acute diverticulitis involving the distal sigmoid colon. No abscess or free air. 2. There is no evidence of nephrolithiasis or obstructive uropathy. 3. Cholelithiasis. There is no CT evidence to suggest acute cholecystitis. Please correlate clinically. RADIATION DOSE DELIVERED: 2,479.42mGy.cm Total DLP 2,479.42mGy.cm Total DLP DATA REPOSITORY: All CT scans at this facility are submitted to the National Radiology Data Registry (NRDR) Dose Index Registry (DIR) with the [employer] (ACR). RADIATION OPTIMIZATION: All CT scans at this facility use at least one of these dose optimization techniques: automated exposure control; mA and/or kV adjustment per patient size (includes targeted exams where dose is matched to clinical indication); or iterative reconstruction.
[2025-04-04 11:02] VITALS: BP 127/43
[2025-04-04 11:05] LABS: ALT 28 U/L (14-59); AST 23 U/L (15-37); Albumin 3.3 g/dL (3.4-5.0); Alkaline Phosphatase 80 U/L (46-116); Anion Gap 5.7 mmol/L (3-11); BUN 16 mg/dL (7-18); Bilirubin, Total 0.5 mg/dL (0.2-1.0); CO2 29.3 mmol/L (21.0-32.0); Calcium 9.2 mg/dL (8.5-10.1); Chloride 105 mmol/L (98-107); Estimated GFR 97.14 (mL/min/1.73m2); Glucose 90 mg/dL (74-106); Potassium 4.0 mmol/L (3.5-5.1); Sodium 140 mmol/L (136-145); Total Protein 7.9 g/dL (6.4-8.2)
[2025-04-04] MEDS: Normal Saline - Diluent 50 ML VIAL IJ (11:16)
[2025-04-04] MEDS: Normal Saline Flush 10 ML SYR IVP (11:16)
[2025-04-04] MEDS: Omnipaque 350 MG/ML 100 ML BTL IJ (11:17)
[2025-04-04 11:56] VITALS: BP 130/80; PULSE 69; RESP 18; O2SAT 97
[2025-04-04 12:53] VITALS: BP 152/66; PULSE 72; RESP 18; TEMP 36.2; O2SAT 97
[2025-04-04] MEDS: Sulfameth/Trimeth DS, 2 TABS/BTL 1 TAB PO (12:56)
[2025-04-04] MEDS: metroNIDAZOLE 500 MG TAB, 3 TABS/BTL PO (12:56)
== END 2025-04-04 12:54 | disposition home or self-care (01) ==
PROVIDERS: Emergency Medicine; Emergency Provider Nurse Practitioner Family; PCP Family Medicine
DX: R31.9 Hematuria, unspecified (principal); R35.0 Frequency of micturition; K57.32 Diverticulitis of large intestine without perforation or abscess without bleeding
CPT/HCPCS: 99285; 99283; 80053; 85027; 74178; 81003; 81015; J3490

== ENCOUNTER 2025-04-08 15:18 | Outpatient (REF) | payer OTHER, SELFPAY ==
[2025-04-08 17:08] LABS: Glucose Negative (Negative)
== END 2025-04-08 15:19 | disposition home or self-care (01) ==
LOC: LBN 15:18
PROVIDERS: PCP Family Medicine; Visit Provider Family Medicine
DX: R31.9 Hematuria, unspecified (principal)
CPT/HCPCS: 81003